=== PATIENT | female | born 1965 | race Caucasian/White ===

== ENCOUNTER 2017-01-01 17:57 | Observation (INO) | payer SELFPAY ==
[2017-01-01 18:38] LABS: #Basophils 0.1 thou/uL (0.0-0.2); #Eosinphils 0.1 thou/uL (0.0-0.7); #Lymphocytes 3.9 thou/uL (1.20-3.40); #Monocytes 0.5 thou/uL (0.11-0.59); #Neutrophils 5.6 thou/uL (1.40-6.50); %Basophils 1.3 % (0.0-1.0); %Eosinophils 0.8 % (0.0-10.0); %Monocytes 5.2 % (0.0-10.0); Hematocrit 41.8 % (36.0-47.0); Mean Platelet Volume 7.9 fL (7.4-10.4); Red Blood Cell (RBC) Count 4.52 mill/uL (4.20-5.40); White Blood Cell (WBC) Count 10.2 thou/uL (4.8-10.8)
[2017-01-01] MEDS ORDERED: HYDROcodone/Acetaminophen 5/325 mg Tablet ONE (18:39)
[2017-01-01] MEDS ORDERED: Gabapentin 100 MG CAP PO SCH (18:45)
[2017-01-01 19:03] LABS: Anion Gap 14 mmol/L (10-20); BUN (Urea Nitrogen) 9 mg/dL (9.8-20.1); Calc. Creatinine Clearance 0 mL/min (70-130); Calcium 8.7 mg/dL (7.8-10.44); Carbon Dioxide 26 mmol/L (22-29); Chloride 97 mmol/L (98-107); Estimated GFR-MDRD 75
[2017-01-01 19:07] LABS: Troponin I Less than 0.010 ng/mL (< 0.028)
[2017-01-01] MEDS ORDERED: Ondansetron ODT 4 MG TAB PO PRN (21:00)
[2017-01-01] MEDS ORDERED: cloNIDine HCl 0.1 MG TAB PO PRN (21:00)
[2017-01-01] MEDS ORDERED: Dextrose 50% Abboject 50 ML SYRINGE SLOW IVP PRN (21:00)
[2017-01-01] MEDS ORDERED: Dextrose 5% in Water 1,000 ML IV PRN (21:00)
[2017-01-01] MEDS ORDERED: traMADol HCl 50 MG TAB PO PRN (21:00)
[2017-01-01] MEDS ORDERED: Ondansetron HCl/PF 4 MG/2 ML Vial IVP PRN (21:00)
[2017-01-01] MEDS ORDERED: HumaLOG 300 UNITS/3 ML VIAL SC PRN (21:00)
[2017-01-01 21:24] VITALS: BMI 29.3
[2017-01-01] MEDS ORDERED: Amitriptyline HCl 25 MG TAB PO SCH (22:00)
[2017-01-01 22:10] LABS: Troponin I 0.012 ng/mL (< 0.028)
[2017-01-01] MEDS: Sodium Chloride 0.9% 1,000 ML IV SCH (22:40)
[2017-01-01] MEDS: Famotidine 20 MG TAB PO SCH (22:41)
[2017-01-01] MEDS: Acetaminophen 500 MG TAB PO PRN (22:46)
--- NOTE | 2017-01-01 23:07 | HP ---
DATE OF ADMISSION: 01/01/2017 PRIMARY CARE PROVIDER: Mckenzie Dueñas M.D. CHIEF COMPLAINT: Hyperglycemia and questionable chest pain. HISTORY OF PRESENT ILLNESS: This is a 51-year-old female, who was transferred to [facility] Emergency Department from [facility] [facility] after the patient was apparently r eferred to the [place] [facility] after checking baseline laboratory data including glucose in the context of known diabetes mellitus type 2, insulin-requiring. The patient states her A1c wa s 18.9 with glucose in the 500 range. The patient states her last hemoglobin A1c was 16.9 on 2016 and prior to that 8.9. The patient states she has had difficulty managing her diabetes as she has been caring for her mother, who has been hospitalized with multiple medical problems. The patie nt admits to some fatigue, blurred vision, and pain in her hands and feet secondary to neuropathy. The patient states she has been eating irregular and taking her insulin irregularly as well. Abdi t states she was evaluated in the emergency room and apparently underwent evaluation including EKG a nd had some right-sided chest pressure. Patient states she is under increased stress due to the dem ands of caring for her mother as well as herself. The patient received nitroglycerin sublingually a nd was chest pain-free. The patient denies any known coronary artery disease and underwent cardiac stress testing on 04/26/2014 showing a negative study. In the emergency room, the patient underwent chest imaging, which showed no acute infiltrate and received Humulin R IV push x10 units in conjunc tion with sublingual nitroglycerin, Tylenol, aspirin, intravenous normal saline, and potassium chlor jennifer. PAST MEDICAL HISTORY: 1. Diabetes mellitus type 2, insulin requiring, uncontrolled with hemoglobin A1c of 18.9. 2. Anxiety disorder. 3. Peripheral neuropathy. 4. Hypertension. 5. History of migraines. 6. Depression. PAST SURGICAL HISTORY: Status post right knee screw placement. CURRENT MEDICATIONS: List may not be entirely accurate and will need confirmation in the a.m. 1. Xanax 1 mg p.o. at bedtime. 2. Gabapentin 300 mg 1 tab p.o. b.i.d. 3. NPH. 4. Levemir 30 units subcutaneously b.i.d. 5. Lisinopril 10 mg p.o. at bedtime. 6. Pravachol 40 mg p.o. at bedtime. 7. Topamax 50 mg p.o. b.i.d. 8. Effexor XR 150 mg p.o. daily. 9. Glyburide 5 mg 1 tablet p.o. b.i.d. 10. Metformin 1000 mg p.o. b.i.d. ALLERGIES: FENTANYL and MORPHINE. FAMILY HISTORY: Father with CVA in his 60s. Both parents with coronary artery disease. SOCIAL HISTORY: Patient is approximately 3 years. Quit smoking 5 years prior to this evalu ation. No alcohol or illicit drug use. Patient resides in the [place], [place] area. REVIEW OF SYSTEMS: The following complete review of systems was negative, unless otherwise mentione d in the HPI or below: Constitutional: Weight loss or gain, ability to conduct usual activities. Skin: Rash, itching. Eyes: Double vision, pain. ENT/Mouth: Nose bleeding, neck stiffness, pain, tenderness. Cardiovascular: Palpitations, dyspnea on exertion, orthopnea. Respiratory: Shortness of breath, wheezing, cough, hemoptysis, fever or night sweats. Gastrointestinal: Poor appetite, abdominal pain, heartburn, nausea, vomiting, constipation, or diar rosmery. Genitourinary: Urgency, frequency, dysuria, nocturia. Musculoskeletal: Pain, swelling. Neurologic/Psychiatric: Anxiety, depression. Allergy/Immunologic: Skin rash, bleeding tendency. PHYSICAL EXAMINATION: VITAL SIGNS: On admission, blood pressure 155/82, pulse 101, respiratory rate 20, temperature 98.4 degrees Fahrenheit, O2 saturation 99% on room air. GENERAL APPEARANCE: This is a 51-year-old female, alert, and oriented x3 in mild to moder ate distress. HEENT: Pupils are equal, round, and reactive to light and accommodation. Extraocular muscles are i ntact. No scleral icterus, no conjunctival injection. Nares patent. OP is clear. NECK: Supple, no cervical adenopathy, no thyromegaly, no carotid bruits, no JVD appreciated. Cervi dean spine with full active and passive range of motion. CHEST: Lungs are clear to auscultation bilaterally. CARDIOVASCULAR: S1, S2, without noted murmur. ABDOMEN: Rounded, soft, nontender, nondistended. Bowel sounds are positive in all four quadrants. There is no hepatosplenomegaly, no abdominal bruits, no rebound or guarding appreciated. EXTREMITIES: Warm and dry with fair turgor. No clubbing, cyanosis, or asymmetric edema appreciated . Pulses palpable distally at the dorsalis pedis, posterior tibial, and popliteal arteries bilatera lly. Capillary refill less than 2 seconds. NEUROLOGIC: Cranial nerves II through XII are grossly intact. No focal or lateralizing signs appre ciated. PERTINENT LABORATORY AND X-RAY FINDINGS: Sodium 133, potassium 3.6, chloride 97, CO2 of 26, BUN 9, creatinine 0.81. Estimated GFR greater than 75. Glucose 350. Hemoglobin A1c 18.9 on 12/31/2016. LFTs within normal limits. Troponin I negative x2. Total cholesterol 242, triglycerides 370, HDL 4 4, LDL 124. CBC within normal limits. Urinalysis dated 01/01/2017 showed greater than 1000 of gluc ose. Positive ketones, small blood, 7-10 rbc's per high powered field and 0-3 wbc's per high powere d field, 1+ yeast. Portable chest x-ray dated 01/01/2017 showed no acute cardiopulmonary process. EKG dated 01/01/2017 by my interpretation shows heart rate in the 80s. Left axis deviation. No acu te ST-T wave changes appreciated. ASSESSMENT AND PLAN: 1. Question of chest pain. We will continue serial cardiac enzymes. Continue telemetry monitoring . Patient with atypical presentation and no evidence to suggest acute coronary syndrome. Continue symptomatic and supportive measures. 2. Diabetes mellitus type 2, insulin requiring, uncontrolled. Last hemoglobin A1c 18.9 on 01/01/20 17. We will confirm home insulin regimen and restart insulin sliding scale for reflexive coverage. Continue to titrate diabetic regimen for more optimal control. Dietitian consult. ADA diet. 3. Hyponatremia. Suspect pseudohyponatremia due to hyperglycemia. We will continue normal saline at 100 mL per hour and repeat sodium level in the a.m. 4. Hypertension. We will confirm home blood pressure regimen and restart. Serial blood pressure m onitoring. 5. Hyperlipidemia. We will resume Pravachol 40 mg p.o. at bedtime. 6. Anxiety/depression. Resume home regimen of Effexor and Topamax. 7. Prophylaxis. Sequential compression devices while in bed. Pepcid 20 mg p.o. b.i.d. 8. Code status is FULL. Surrogate medical decision maker not identified.
[2017-01-02 00:52] LABS: Troponin I 0.012 ng/mL (< 0.028)
[2017-01-02] MEDS ORDERED: Ketorolac Tromethamine 30 MG/ML VIAL IVP SCH (05:30)
[2017-01-02 06:00] LABS: Hematocrit 41.1 % (36.0-47.0); Mean Platelet Volume 8.3 fL (7.4-10.4); Neutrophil 50 % (42-75); White Blood Cell (WBC) Count 8.5 thou/uL (4.8-10.8)
[2017-01-02 06:05] LABS: Anion Gap 15 mmol/L (10-20); BUN (Urea Nitrogen) 8 mg/dL (9.8-20.1); Calc. Creatinine Clearance 116 mL/min (70-130); Calcium 8.6 mg/dL (7.8-10.44); Carbon Dioxide 20 mmol/L (22-29); Chloride 102 mmol/L (98-107); Estimated GFR-MDRD 79
[2017-01-02] MEDS: HumaLOG 300 UNITS/3 ML VIAL SC PRN ×2 (06:23→12:25)
[2017-01-02] MEDS: Famotidine 20 MG TAB PO SCH (09:33)
[2017-01-02] MEDS: Sodium Chloride 0.9% 1,000 ML IV SCH (09:34)
[2017-01-02] MEDS: Acetaminophen 500 MG TAB PO PRN (09:36)
[2017-01-02 12:29] VITALS: TEMP 97.8
[2017-01-02] MEDS ORDERED: Gabapentin 100 MG CAP PO SCH (15:00)
--- NOTE | 2017-01-02 15:12 | NM ---
CARDIAC SPECT: CLINICAL HISTORY: 51-year-old female with chest pain, hypertension, and diabetes. Family history of coronary artery di sease. TECHNIQUE: A stress-only myocardial perfusion scan was performed following the intravenous administration of 28 mCi technetium-99m sestamibi. Pharmacologic stress with Adenosine was monitored and interpreted by Ana Valenzuela NP. FINDINGS: Homogeneous tracer distribution is seen in the myocardial segments on the post stress images. GATED SPECT LVEF: 72%. WALL MOTION EXAM: Normal. IMPRESSION: Normal post stress myocardial perfusion scan. POS: [facility]
[2017-01-02 15:41] VITALS: BP 136/68
[2017-01-02] MEDS ORDERED: Insulin Detemir 100 UNITS/ML 10 UNITS in Pre-Filled Syringe 1 EACH SC SCH (16:00)
[2017-01-02] MEDS ORDERED: ADENOSINE 60 MG/20 ML VIAL ONE (16:19)
[2017-01-02] MEDS ORDERED: Amitriptyline HCl 25 MG TAB PO SCH ×2 (21:00)
--- NOTE | 2017-01-02 21:30 | DIS ---
PRIMARY CARE PROVIDER: Mckenzie Dueñas M.D. DATE OF ADMISSION: 01/01/2017 DATE OF DISCHARGE: 01/02/2017 DISCHARGE DIAGNOSES: 1. Chest pain, resolved. 2. Hyperglycemia. DISCHARGE MEDICATIONS: Amitriptyline 25 mg at bedtime, gabapentin 100 mg 3 times a day, Levemir ins ulin dose was increased to 40 units daily, from 30 units daily. Effexor XR 75 mg daily. CONDITION OF PATIENT AT THE TIME OF DISCHARGE: Stable. ASSESSMENT: Ms. Delcid the day of discharge. She denies any chest pain or shortness of breath. Vi priscilla signs are stable. S1 and S2 are heard, regular. Lungs are clear to auscultation bilaterally. LABORATORY INVESTIGATIONS: On the day of discharge, Ms. Delcid has a white count of 8500, hemoglobi n 13.5, platelet count 274,000, D-dimer less than 0.27. Sodium 133, potassium 4.0, carbon dioxide 2 0, normal anion gap of 15, creatinine 0.77. HOSPITAL COURSE: Ms. Delcid is a pleasant 51-year-old lady, who was admitted to [facility] on 01/01/2017 for chest pain. She also had uncontrolled hyperglycemia. She reports that she has not been taking her medications regularly recently since she has been going through a l ot of stress with her mother's hospitalization. Her home medications were resumed during this hospi talization. She had a normal D-dimer. She also had a nuclear stress test, which was normal, with a left ventricular ejection fraction of 72%. The importance of adhering to medication regimen was emphasized. She is advised to follow up with h er primary care provider's office in 1-3 days. She will likely need close followup for her diabetes mellitus. Many thanks for allowing me to participate in your patient's care. Please feel free to contact me w ith any questions or concerns. DISCHARGE DESTINATION: Home.
[2017-01-03] MEDS ORDERED: Venlafaxine HCl XR 150 MG CAP PO SCH (09:00)
[2017-01-03] MEDS ORDERED: Insulin Detemir 100 UNITS/ML 30 UNITS in Pre-Filled Syringe 1 EACH SC SCH (09:00)
[2017-01-03] MEDS ORDERED: Insulin Detemir 100 UNITS/ML 40 UNITS in Pre-Filled Syringe 1 EACH SC SCH (09:00)
== END 2017-01-02 16:35 | disposition home or self-care (01) ==
LOC: ERS 17:57 → 2SW 19:29
PROVIDERS: ADMIT Family Medicine; ATTEND Family Medicine
DX: R07.89 Other chest pain (principal); E11.65 Type 2 diabetes mellitus with hyperglycemia; E11.42 Type 2 diabetes mellitus with diabetic polyneuropathy; F41.9 Anxiety disorder, unspecified; F32.9 Major depressive disorder, single episode, unspecified; I10 Essential (primary) hypertension; E78.5 Hyperlipidemia, unspecified; G43.909 Migraine, unspecified, not intractable, without status migrainosus; Z88.5 Allergy status to narcotic agent; Z91.14 Patient's other noncompliance with medication regimen; Z87.891 Personal history of nicotine dependence; Z82.3 Family history of stroke
CPT/HCPCS: 36415; 36416; 78452; 80048; 84484; 85007; 85027; 85379; 93017; 94760; 96361; 96374; 96375; 99285; A9500; G0378; J0153; J1815; J1885; J2405; Q0162

== ENCOUNTER 2017-04-10 17:52 | Emergency (ER) | payer SELFPAY | END 2017-04-10 19:45 | disposition left against medical advice (07) | LOC: ERS 17:52 | DX: Z53.21 Procedure and treatment not carried out due to patient leaving prior to being seen by health care provider (principal) ==

== ENCOUNTER 2017-06-11 14:38 | Emergency (ER) | payer SELFPAY ==
[2017-06-11 16:08] LABS: #Basophils 0.1 thou/uL (0.0-0.2); #Eosinphils 0.2 thou/uL (0.0-0.7); #Lymphocytes 3.3 thou/uL (1.20-3.40); #Monocytes 0.5 thou/uL (0.11-0.59); #Neutrophils 7.7 thou/uL (1.40-6.50); %Basophils 0.7 % (0.0-1.0); %Eosinophils 1.4 % (0.0-10.0); %Lymphocytes 27.8 % (21.0-51.0); %Monocytes 4.2 % (0.0-10.0); Hemoglobin 15.4 g/dL (12.0-16.0); Mean Corpuscular HGB CONC 33.3 g/dL (32.0-36.0); Mean Corpuscular Hemoglobin 29.7 pg (27.0-31.0); Mean Corpuscular Volume 89.2 fl (81.0-99.0); Mean Platelet Volume 8.2 fL (7.4-10.4); Platelet Count 298 thou/uL (130-400); RBC Distribution Width 11.4 % (11.5-14.5); Red Blood Cell (RBC) Count 5.16 mill/uL (4.20-5.40); White Blood Cell (WBC) Count 11.7 thou/uL (4.8-10.8)
[2017-06-11] MEDS ORDERED: Morphine 2 MG/ML SYRINGE ONE ×2 (16:14→16:26)
[2017-06-11] MEDS ORDERED: Ondansetron HCl/PF 4 MG/2 ML Vial ONE (16:14)
--- NOTE | 2017-06-11 16:36 | RAD ---
PORTABLE CHEST ONE VIEW: Date: 06-11-17 Time: 4:19 p.m. History: Cough, chest pain, shortness of breath. FINDINGS: Comparison is made with examination of 01-01-17. The heart size is normal. The lungs are well expanded without focal areas of consolidation, pneumotho rax, or pleural effusions. IMPRESSION: No radiographic evidence of acute cardiopulmonary process. POS: [facility]
[2017-06-11 18:46] LABS: Anion Gap 15 mmol/L (10-20); BUN (Urea Nitrogen) 10 mg/dL (9.8-20.1); Calc. Creatinine Clearance 0 mL/min (70-130); Calcium 9.7 mg/dL (7.8-10.44); Carbon Dioxide 24 mmol/L (22-29); Chloride 94 mmol/L (98-107); Estimated GFR-MDRD 56; Glucose 466 mg/dL (70-105); Potassium 4.4 mmol/L (3.5-5.1); Sodium 129 mmol/L (136-145)
[2017-06-11] MEDS ORDERED: Acetaminophen 500 MG TAB ONE (18:54)
--- NOTE | 2017-06-14 15:57 | EKG ---
Test Reason : CHEST PAIN Blood Pressure : / mmHG Vent. Rate : 098 BPM Atrial Rate : 098 BPM P-R Int : 124 ms QRS Dur : 080 ms QT Int : 354 ms P-R-T Axes : 031 -12 008 degrees QTc Int : 451 ms Normal sinus rhythm Possible Left atrial enlargement Borderline ECG Confirmed by CHONG ALBRECHT, FORTUNATO ([id number]), editorial assistant EDI LIN ([id number] on 06/14/2017 3:56:30 PM Referred By: Confirmed By:FORTUNATO SCHWARZ MD
== END 2017-06-11 20:49 | disposition home or self-care (01) ==
LOC: ERS 14:38
DX: M79.604 Pain in right leg (principal); M79.605 Pain in left leg; E11.65 Type 2 diabetes mellitus with hyperglycemia; E11.40 Type 2 diabetes mellitus with diabetic neuropathy, unspecified; I10 Essential (primary) hypertension; G43.909 Migraine, unspecified, not intractable, without status migrainosus; M79.7 Fibromyalgia; Z79.4 Long term (current) use of insulin; Z79.899 Other long term (current) drug therapy
CPT/HCPCS: 36416; 71045; 80048; 85025; 93005; 96361; 96374; 96375; J2270; J2405